=== PATIENT | female | born 1960 ===

== ENCOUNTER → 2020-09-06 | Outpatient (CLI) | payer OTHER ==
--- NOTE | 2020-09-06 09:47 | NM ---
EXAMINATION TYPE: NM hepatobiliary w EF DATE OF EXAM: 09/06/2020 COMPARISON: NONE HISTORY: Epigastric pain TECHNIQUE: After the intravenous administration of 4.3 mCi Tc 99m Mebrofenin hepatobiliary scintigrap hy is performed. Immediate images post injection. FINDINGS: There is satisfactory initial accumulation of tracer by the liver. The gallbladder is visualized wit hin 6 minutes. The small bowel activity is noted within 22 minutes. At one hour 8 ounces of oral en sure plus is given to mimic CCK and gallbladder ejection fraction is calculated at 68 %, in the emma l range. Therefore there is no scintigraphic evidence of cystic or common bile duct obstruction to s uggest acute cholecystitis or gallbladder dyskinesia. IMPRESSION: Exam is within normal limits.
== END | disposition home or self-care (01) ==
LOC: RADNMMAIN 06:45
PROVIDERS: ATTEND Internal Medicine Gastroenterology
DX: R10.13 Epigastric pain (principal)
CPT/HCPCS: 78226; A9537

== ENCOUNTER 2020-10-10 09:11 | Day surgery (SDC) | payer OTHER ==
[2020-10-05 13:46] VITALS: BMI 20.9
[~2020-10-10 09:11] MED LIST: LACTATED RINGERS 1,000 ML IV SCH; LIDOCAINE 1% (10MG/ML) FOR IV START INTRADERMA PRN
[2020-10-10 09:55] VITALS: RESP 16; TEMP 97.9
[2020-10-10] MEDS ORDERED: LIDOCAINE 1% INJ 10MG/ML (20 ML MDV) ONE (10:41)
[2020-10-10] MEDS ORDERED: PROPOFOL 10 MG/ML 20 ML VIAL IV ONE (10:41)
--- NOTE | 2020-10-10 10:53 | P.PCN ---
Date of Procedure: 10/10/20 Procedure(s) Performed: BRIEF HISTORY: Patient is a 59-year-old, pleasant, scheduled for an upper endoscopy as a part of evaluation of epigastric pain for the last 2 months duration. She tried Prilosec for 2 weeks with no help. PROCEDURE PERFORMED: Esophagogastroduodenoscopy with biopsy. PREOPERATIVE DIAGNOSIS: Chronic epigastric pain of 2 months duration. IV sedation per anesthesia. PROCEDURE: After informed consent was obtained, the patient was brought into the endoscopy unit. IV sedation was administered by Anesthesia under continuous monitoring. Initially the Olympus GIF-140 video endoscope was inserted into the mouth. Esophagus intubated without any difficulty. It was gradually advanced into the stomach and duodenum and carefully examined. The bulb and the second part of the duodenum appeared normal. Biopsies were done from the duodenum to rule out celiac disease. The scope at this time was withdrawn to the stomach, adequately insufflated with air, and upon careful examination, mucosa of the antrum, had mild gastritis and biopsies were done from this area. The body, cardia and the fundus appeared normal. The scope was then withdrawn into the esophagus. The GE junction was located at 39 cm from the incisors. There was circumferential erythema the GE junction consistent with LA grade a reflux esophagitis. The rest of the esophagus appeared normal. There were no erosions or ulcerations seen and the patient tolerated the procedure well. IMPRESSION: 1. Mild antral gastritis 2. LA grade a reflux esophagitis 3. Small gastric polyps. RECOMMENDATIONS: The findings of this examination were discussed with the patient as well as a family. She was advised to follow with the biopsy results.. The meantime she'll give and be given a prescription for Carafate 1 g 4 times daily and she'll be seen in office in 2 weeks
[2020-10-10 11:22] VITALS: BP 116/79; PULSE 69
== END 2020-10-10 11:55 | disposition home or self-care (01) ==
LOC: ORWHC2ENDO 09:11
PROVIDERS: ATTEND Internal Medicine Gastroenterology
DX: G89.29 Other chronic pain (principal); K29.50 Unspecified chronic gastritis without bleeding; K31.7 Polyp of stomach and duodenum; K21.00 Gastro-esophageal reflux disease with esophagitis, without bleeding; Z86.718 Personal history of other venous thrombosis and embolism; I73.00 Raynaud's syndrome without gangrene; R11.0 Nausea; Z97.2 Presence of dental prosthetic device (complete) (partial); Z79.899 Other long term (current) drug therapy
CPT/HCPCS: 88305; 43239; J2001; J2704

== ENCOUNTER 2021-01-06 11:55 | Emergency (ER) | payer OTHER ==
[2021-01-06 12:07] VITALS: TEMP 98.1
[2021-01-06] MEDS ORDERED: diphenhydrAMINE 50 MG/ML 1 ML VIAL IVP STA (12:21)
[2021-01-06] MEDS ORDERED: SODIUM CHLORIDE 0.9% 1,000 ML IV STA (12:21)
[2021-01-06] MEDS ORDERED: KETOROLAC 15 MG/ML 1 ML VIAL IVP STA (12:21)
[2021-01-06] MEDS ORDERED: METOCLOPRAMIDE 5 MG/ML 2 ML VIAL IVP STA (12:21)
[2021-01-06] MEDS ORDERED: FAMOTIDINE 20 MG/2 ML VIAL IV STA (12:22)
--- NOTE | 2021-01-06 12:52 | ED ---
General Adult HPI - General Chief complaint: Abdominal Pain Stated complaint: Abd pain Time Seen by Provider: 01/06/21 12:09 Source: patient, RN notes reviewed, old records reviewed Mode of arrival: ambulatory Limitations: no limitations - History of Present Illness Initial comments: Patient is a 60-year-old female with past medical history remarkable for chronic gastritis, ring on, history of blood clot in the right arm, nausea who presents emergency Department complaining of abdominal pain with nausea. She states that this is different than her prior episodes of abdominal pain and nausea. Typically, she is to have pain in the epigastric region. She currently has pain near the umbilicus with some slight radiation to the left upper abdomen. She describes it as an achy pain that comes and goes and sometimes is so severe that she bends over in pain. She does have a history of ovarian cysts. She states this pain has been ongoing for a few days to a week. Associated with this is intermittent palpitations which are chronic for her as well. She endorses nausea but denies any episodes of vomiting. Denies any change in bowel habits, stooling, and stomach and gas. Denies any blood in her stool. Denies any hematemesis. Denies any dysuria, hematuria, vaginal discharge or bleeding. She denies any abdominal surgeries except for section. States she is no longer on her menstrual cycle. She does have a history of ovarian cyst. She denies any headache, weakness, numbness. Denies any shortness of breath, no fevers, chills. She has no other acute complaint at this time. Patient has been seen previously for abdominal pain and recently received a computed tomography scan of her abdomen and pelvis 3 weeks ago for her epigastric pain which is negative. Showed no acute intra-abdominal process. Report is with the patient. - Related Data Home Medications Medication Instructions Recorded Confirmed Flecainide Acetate 50 mg PO BID 01/06/21 01/06/21 Omeprazole 40 mg PO DAILY 01/06/21 01/06/21 Previous Rx's Medication Instructions Recorded HYDROcodone/APAP 5-325MG [[place] 1 tab PO Q6HR PRN 3 Days #12 tab 01/06/21 5-325] Allergies Allergy/AdvReac Type Severity Reaction Status Date / Time No Known Allergies Allergy Verified 01/06/21 14:59 Review of Systems ROS Statement: Those systems with pertinent positive or pertinent negative responses have been documented in the HPI. Review of Systems: CONST: Denies fever EYES: Denies blurry vision ENT: Denies nasal congestion C/V: Endorses palpitations RESP: Denies shortness of breath GI: Endorses abdominal pain : Denies dysuria SKIN: Denies rash. MSK: Denies joint pain. NEURO: Denies headache ROS Other: All systems not noted in ROS Statement are negative. Past Medical History Past Medical History: GERD/Reflux Additional Past Medical History / Comment(s): Nausea, Raynaud's, hx. blood clot in R arm. History of Any Multi-Drug Resistant Organisms: None Reported Past Surgical History: Section, Tonsillectomy Additional Past Surgical History / Comment(s): Hand surgery both hands. Colonoscopy. Past Anesthesia/Blood Transfusion Reactions: No Reported Reaction Past Psychological History: No Psychological Hx Reported Smoking Status: Never smoker Past Alcohol Use History: None Reported Past Drug Use History: None Reported - Past Family History Mother Family Medical History: No Reported History General Exam - General Exam Comments Initial Comments: General: Appears in no acute distress. HEAD: Normal with no signs of head trauma. EYES: PERRLA, EOMI, conjunctiva normal, no discharge. Pupils are 3 mm bilaterally. ENT: Hearing grossly intact, normal oropharynx. RESPIRATORY: Clear breath sounds bilaterally. No wheezes, rales, or rhonchi. C/V: Regular rate and rhythm. S1 and S2 auscultated, no edema, peripheral pulses 2+ and intact throughout ABD: Abdomen is soft, nondistended. Patient has some mild tenderness to palpation just left to the umbilicus but does not seem to radiate. She is no CVA tenderness to percussion. No peritoneal signs. No rebound tenderness.. No guarding. EXT: Normal range of motion, no obvious deformity SKIN: No rashes or lesions observed on exposed skin. NEURO: Alert and oriented 4. Limitations: no limitations Course Vital Signs 01/06/21 01/06/21 01/06/21 12:03 13:43 17:09 Temperature 98.1 F Pulse Rate 77 72 Respiratory 20 18 Rate Blood Pressure 118/81 120/82 O2 Sat by Pulse 100 98 Oximetry Medical Decision Making - Medical Decision Making Based on the patient's presentation and physical exam, I would like to rule out the possibility of ovarian torsion in this patient, however there is low likelihood as she does have a history of ovarian cyst but she is slightly older. His abdominal pain is abnormal for her. Her typical gastritis, and therefore we will start with an ultrasound is we're awaiting results of laboratory studies. She is having intermittent palpitations as well as her abdominal pain nausea, also obtain a cardiac workup including EKG, troponin, chest x-ray. She'll be sent directly treated with 1 L fluid bolus, IV Benadryl, Pepcid, Toradol, Reglan. She'll be connected to continuous cardiac monitoring while she is in the department. Patient was in agreement this plan. Patient's EKG shows normal sinus rhythm without any signs of acute ischemia. Patient's lavatory studies are remarkable for a mildly elevated total bilirubin of 1.5. Patient's alk phos is low at 36. Troponin is negative. Patient's bicarb is mildly decreased at 20. Remainder of her laboratory studies are unremarkable. Patient's chest x-ray reveals no acute cardiopulmonary process. Patient's abdominal pelvic ultrasound did not show signs of ovarian torsion but did reveal a 1.6 cm lesion within the left adnexa that corresponds to a complex ovarian cyst. They recommend follow-up MRI with [facility] S[facility] TRA[facility] referral to rule out possibility of neoplasm. Due to the patient's persistent abdominal pain, we did order an abdominal CT as well, which revealed no acute intra-abdominal process. There was a hepatic cyst which is seen on prior abdominal CTs. On reevaluation, patient was still feeling somewhat nauseous with abdominal discomfort. We'll provide more analgesia as well as additional antiemetic medications. She would like to attempt by mouth challenge prior to determining if she will be discharged home or admitted. I discussed with her the need to obtain an MRI as well as [facility] AND SAFETY TRAINER follow-up, however typically this is on an outp atient basis. She exposed understanding. Following a period of observation, patient did tolerate a by mouth challenge. I do believe it is safer to be discharged, this time. I will provide her with follow-up information for [facility] S[facility]ET[facility] TRA[facility] to further workup the patient's complex ovarian cyst. She was in agreement this plan. I will provide the patient with a [place] prescription for pain, and an opiate lead start talking form was completed by myself and the patient. I will provide the patient with a prescription for [place] 5, 12 tabs. I instructed the patient to follow up with their PCP in the next 3 days. I provided contact information for follow up with Dr. Noyola of [facility]. I explai jesús that the patient should return to the emergency department if they experience any worsening symptoms. Strict return precautions were discussed with the patient. The patient expressed understanding of these instructions. I answered all questions that the patient had. The patient was discharged home in fair condition with their prescriptions and follow up information. - Lab Data Result diagrams: 01/06/21 12:39 01/06/21 13:20 Lab Results 01/06/21 01/06/21 01/06/21 Range/Units 12:39 12:39 12:47 WBC 5.5 (3.8-10.6) k/uL RBC 4.69 (3.80-5.40) m/uL Hgb 15.1 (11.4-16.0) gm/dL Hct 44.3 (34.0-46.0) % MCV 94.4 (80.0-100.0) fL MCH 32.1 (25.0-35.0) pg MCHC 34.0 (31.0-37.0) g/dL RDW 13.0 (11.5-15.5) % Plt Count 197 (150-450) k/uL MPV 9.8 Neutrophils % 62 % Lymphocytes % 30 % Monocytes % 5 % Eosinophils % 1 % Basophils % 1 % Neutrophils # 3.4 (1.3-7.7) k/uL Lymphocytes # 1.6 (1.0-4.8) k/uL Monocytes # 0.3 (0-1.0) k/uL Eosinophils # 0.1 (0-0.7) k/uL Basophils # 0.1 (0-0.2) k/uL PT (9.0-12.0) sec INR (<1.2) APTT (22.0-30.0) sec Sodium (137-145) mmol/L Potassium (3.5-5.1) mmol/L Chloride (98-107) mmol/L Carbon Dioxide (22-30) mmol/L Anion Gap mmol/L BUN (7-17) mg/dL Creatinine (0.52-1.04) mg/dL Est GFR (CKD-EPI)AfAm (>60 ml/min/1.73 sqM) Est GFR (CKD-EPI)NonAf (>60 ml/min/1.73 sqM) Glucose (74-99) mg/dL Plasma Lactic Acid Edgardo 1.1 (0.7-2.0) mmol/L Calcium (8.4-10.2) mg/dL Total Bilirubin (0.2-1.3) mg/dL AST (14-36) U/L ALT (4-34) U/L Alkaline Phosphatase (38-126) U/L Troponin I (0.000-0.034) ng/mL Total Protein (6.3-8.2) g/dL Albumin (3.5-5.0) g/dL Amylase (30-110) U/L Lipase (23-300) U/L Urine Color Colorless Urine Appearance Clear (Clear) Urine pH 7.0 (5.0-8.0) Ur Specific [place] 1.004 (1.001-1.035) Urine Protein Negative (Negative) Urine Glucose (UA) Negative (Negative) Urine Ketones Negative (Negative) Urine Blood Negative (Negative) Urine Nitrite Negative (Negative) Urine Bilirubin Negative (Negative) Urine Urobilinogen <2.0 (<2.0) mg/dL Ur Leukocyte Esterase Negative (Negative) 01/06/21 01/06/21 01/06/21 Range/Units 13:20 13:20 15:18 WBC (3.8-10.6) k/uL RBC (3.80-5.40) m/uL Hgb (11.4-16.0) gm/dL Hct (34.0-46.0) % MCV (80.0-100.0) fL MCH (25.0-35.0) pg MCHC (31.0-37.0) g/dL RDW (11.5-15.5) % Plt Count (150-450) k/uL MPV Neutrophils % % Lymphocytes % % Monocytes % % Eosinophils % % Basophils % % Neutrophils # (1.3-7.7) k/uL Lymphocytes # (1.0-4.8) k/uL Monocytes # (0-1.0) k/uL Eosinophils # (0-0.7) k/uL Basophils # (0-0.2) k/uL PT 11.4 (9.0-12.0) sec INR 1.1 (<1.2) APTT 23.8 (22.0-30.0) sec Sodium 140 (137-145) mmol/L Potassium 4.2 (3.5-5.1) mmol/L Chloride 108 H (98-107) mmol/L Carbon Dioxide 20 L (22-30) mmol/L Anion Gap 12 mmol/L BUN 5 L (7-17) mg/dL Creatinine 0.50 L (0.52-1.04) mg/dL Est GFR (CKD-EPI)AfAm >90 (>60 ml/min/1.73 sqM) Est GFR (CKD-EPI)NonAf >90 (>60 ml/min/1.73 sqM) Glucose 86 (74-99) mg/dL Plasma Lactic Acid Edgardo (0.7-2.0) mmol/L Calcium 8.6 (8.4-10.2) mg/dL Total Bilirubin 1.5 H (0.2-1.3) mg/dL AST 28 (14-36) U/L ALT 16 (4-34) U/L Alkaline Phosphatase 36 L (38-126) U/L Troponin I <0.012 (0.000-0.034) ng/mL Total Protein 6.8 (6.3-8.2) g/dL Albumin 4.1 (3.5-5.0) g/dL Amylase 82 (30-110) U/L Lipase 118 (23-300) U/L Urine Color Urine Appearance (Clear) Urine pH (5.0-8.0) Ur Specific [place] (1.001-1.035) Urine Protein (Negative) Urine Glucose (UA) (Negative) Urine Ketones (Negative) Urine Blood (Negative) Urine Nitrite (Negative) Urine Bilirubin (Negative) Urine Urobilinogen (<2.0) mg/dL Ur Leukocyte Esterase (Negative) - EKG Data -: EKG Interpreted by Me EKG Comments: 12-lead Electrocardiogram Interpretation Note EKG was reviewed and interpreted by myself. 12-lead ECG performed at 1247 is interpreted by me as revealing normal sinus rhythm at a rate of 69 beats per minute. Left axis deviation. ND interval is 120 ms, QRS duration is 80 ms, QTc is 385 ms.. There were no ST or T wave abnormalities to suggest myocardial ischemia or injury. R wave progression across the precordium was satisfactory. By my interpretation this EKG is non-diagnostic for acute ischemia. Disposition Clinical Impression: Pain in the abdomen, Nausea, Ovarian cyst, complex, Hepatic cyst Disposition: HOME SELF-CARE Condition: Fair Instructions (If sedation given, give patient instructions): Ovarian Cyst (ED), Abdominal Pain (ED) Prescriptions: HYDROcodone/APAP 5-325MG [[place] 5-325] 1 tab PO Q6HR PRN 3 Days #12 tab PRN Reason: Pain Is patient prescribed a controlled substance at d/c from ED?: Yes If prescribed controlled substance>3 days was MAPS reviewed?: Prescribed <3 Days Referrals: Priscila Willingham DO [Primary Care Provider] - 1-2 days Rachel Noyola DO [Doctor of Osteopathic Medicine] - 1-2 days
[2021-01-06 13:01] LABS: Basophils # (A) 0.1 k/uL (0-0.2); Basophils % (A) 1 %; Eosinophils # (A) 0.1 k/uL (0-0.7); Eosinophils % (A) 1 %; HCT 44.3 % (34.0-46.0); HGB 15.1 gm/dL (11.4-16.0); Lymphocytes # (A) 1.6 k/uL (1.0-4.8); Lymphocytes % (A) 30 %; MCH 32.1 pg (25.0-35.0); MCV 94.4 fL (80.0-100.0); Mean Platelet Volume 9.8; Monocytes # (A) 0.3 k/uL (0-1.0); Monocytes % (A) 5 %; Neutrophils # (A) 3.4 k/uL (1.3-7.7); Neutrophils % (A) 62 %; Platelet Count 197 k/uL (150-450); RBC 4.69 m/uL (3.80-5.40); WBC 5.5 k/uL (3.8-10.6)
[2021-01-06 13:37] LABS: Appearance,Urine Clear (Clear); Bilirubin,Urine Negative (Negative); Blood,Urine Negative (Negative); Color,Urine Colorless; Glucose,Urine (UA) Negative (Negative); Ketones,Urine Negative (Negative); Leukocyte Esterase,Urine Negative (Negative); Nitrite,Urine Negative (Negative); Protein,Urine Negative (Negative); Specific Gravity,Urine 1.004 (1.001-1.035); Urobilinogen,Urine <2.0 mg/dL (<2.0)
--- NOTE | 2021-01-06 13:47 | US ---
EXAMINATION TYPE: US pelvis limited transvag DATE OF EXAM: 01/06/2021 COMPARISON: NONE CLINICAL HISTORY: 60-year-old female evaluate for torsion. Umbilical pain with nausea today, h/o ovar imelda cyst once, prior . TECHNIQUE: TA/TV. Limited Transabdominal images. Transvaginal sonographic images were medically nec essary to better assess the following anatomy: ovaries Date of LMP: 9yrs ago FINDINGS: EXAM MEASUREMENTS: Uterus: 7.2 x 4.2 x 2.8 cm Endometrial Stripe: 0.3 cm Right Ovary: not seen cm Left Ovary: 1.9 x 2.1 x 1.9 cm 1. Uterus: Anteverted and otherwise wnl. scar noted. 2. Endometrium: Trace 1 mm fluid within the fundal uterine cavity. 3. Right Ovary: not seen due to bowel gas and atrophy 4. Left Ovary: Heterogeneous cystic appearing structure measuring 1.6 x 1.6 x 1.3cm. No internal vas cularity seen. There is satisfactory peripheral arterial and venous flow. 5. Bilateral Adnexa: wnl 6. Posterior cul-de-sac: wnl [employer] Integration Specialist notes:suspected left ovary sits so close to uterus that it mimics a pedunculated uterin e fibroid, peripheral arterial and venous flow was detected but there was no internal flow noted, pos sibly due to complex cyst, took transabdominal images to further assess but unable to benefit due to surrounding bowl gas. IMPRESSION: 1. A 1.6 cm lesion within the left adnexa likely corresponds to a complex ovarian cyst. No internal v ascularity. There is satisfactory arterial and venous flow within the peripheral ovarian parenchyma a rguing against ovarian torsion. This lesion is abnormal in a postmenopausal female. Recommend further evaluation with pelvic MRI without and with contrast and ARCHITECTURAL SUPERINTENDENT referral. A cystic epithelial ovaria n neoplasm is not excluded at this time. 2. Right ovary could not be visualized probably due to combination of postmenopausal atrophy and pushpa l gas. 3. Endometrial stripe measures 3 mm.
[2021-01-06 14:04] LABS: ALT 16 U/L (4-34); African American GFR (CKD) >90 (>60 ml/min/1.73 sqM); Albumin 4.1 g/dL (3.5-5.0); Amylase 82 U/L (30-110); Anion Gap 12 mmol/L; Blood Urea Nitrogen 5 mg/dL (7-17); Calcium 8.6 mg/dL (8.4-10.2); Carbon Dioxide 20 mmol/L (22-30); Chloride 108 mmol/L (98-107); Glucose 86 mg/dL (74-99); Lipase 118 U/L (23-300); Non-African American GFR(CKD) >90 (>60 ml/min/1.73 sqM); Sodium 140 mmol/L (137-145); Total Bilirubin 1.5 mg/dL (0.2-1.3); Total Protein 6.8 g/dL (6.3-8.2)
[2021-01-06 14:09] LABS: AST 28 U/L (14-36); Alkaline Phosphatase 36 U/L (38-126); Potassium 4.2 mmol/L (3.5-5.1)
--- NOTE | 2021-01-06 14:17 | CT ---
EXAMINATION TYPE: CT abdomen pelvis w con DATE OF EXAM: 01/06/2021 COMPARISON: None HISTORY: umbilical pain CT DLP: 460.7 mGycm Automated exposure control for dose reduction was used. CONTRAST: Performed with IV Contrast, patient injected with 100 mL of Isovue 300. There is some subsegmental atelectasis right lung base. Heart size is normal. There is no pericardial effusion. There is 2.5 cm cyst in the superior right lobe of the liver. Bile ducts are not dilated. Gallbladder is intact. Spleen stomach pancreas appear intact. There is no adrenal mass. Kidneys show satisfactory contrast opacification. There is no hydronephrosi s. Ureters are not dilated. There is normal renal excretion on the delayed images. Bladder distends s moothly. Uterus is anteverted. There is no inguinal hernia. There is no free fluid in the pelvis. There is no mesenteric edema. There is no ascites or free air. There is no bowel obstruction. There i s distended gas-filled appendix. Lumbar vertebra have fairly normal alignment. There is a minimal L4-5 subluxation. There is no eviden ce of spinal stenosis. There is no compression fracture. Bony pelvis is intact. The hip joints are in tact. IMPRESSION: Negative CT scan abdomen and pelvis. Hepatic cyst noted.
--- NOTE | 2021-01-06 14:18 | XR ---
EXAMINATION TYPE: XR chest 2V DATE OF EXAM: 01/06/2021 COMPARISON: NONE HISTORY: Abdominal pain TECHNIQUE: 2 views FINDINGS: Heart and mediastinum are normal. Lungs are clear. Diaphragm is normal. Bony thorax is inta ct. IMPRESSION: Normal chest.
[2021-01-06] MEDS ORDERED: MORPHINE SULFATE 4 MG/ML SYRINGE IVP STA (15:32)
[2021-01-06] MEDS ORDERED: ONDANSETRON 4 MG/2 ML VIAL IVP STA (15:32)
[2021-01-06 15:42] LABS: INR 1.1 (<1.2); Partial Thromboplastin Time 23.8 sec (22.0-30.0); Prothrombin Time 11.4 sec (9.0-12.0)
[2021-01-06 17:10] VITALS: BP 120/82; PULSE 72; RESP 18
== END 2021-01-06 17:14 | disposition home or self-care (01) ==
LOC: EC 11:55
DX: N83.202 Unspecified ovarian cyst, left side (principal); R11.0 Nausea; K76.89 Other specified diseases of liver; K21.9 Gastro-esophageal reflux disease without esophagitis; I73.00 Raynaud's syndrome without gangrene; Z90.89 Acquired absence of other organs; Z87.19 Personal history of other diseases of the digestive system
CPT/HCPCS: 99285; 96374; 96375 ×5; 96361; 36415; 93005; 80053; 82150; 83605; 83690; 84484; 85025; 85610; 85730; 81003; 71046; 76856; 76830; 74177; J2270; J1200; J2765; J2405; J1885; Q9967; 76857; 93976; 99284

== ENCOUNTER → 2023-08-20 | Outpatient (CLI) | payer OTHER ==
--- NOTE | 2023-08-20 15:25 | MR ---
EXAMINATION TYPE: MR hip RT wo con DATE OF EXAM: 08/20/2023 COMPARISON: Outside pelvic and bilateral hip x-rays August 18, 2023 HISTORY: Right hip pain, clicking, locking, and limited movement for 6 months, some relief with acupu ncture Standard multiplanar, multisequence MRI departmental protocol Multiplanar, multisequence images of the pelvis focusing on right hip were acquired without contrast. FINDINGS: Uiby-[id number]-[id number] axial joint space loss in both hips is seen. No significant spurring or ramos bchondral cystic change. Symmetric small joint effusions are presumed physiologic. No significant spu rring. Femoral head shapes are maintained bilaterally. No suspicious increased T2 signal to suggest a bnormal osseous edema. No suspicious serpiginous diminished T1 signal to suggest avascular necrosis. No significant coronary hernia or adenopathy is seen. Muscle bulk is symmetric and maintained bilater ally. Mild edema level of the greater trochanters bilaterally. Urinary bladder appears within normal limits. Visualized uterus shows 2.3 cm posterior subserosal fib roid axial image 30. No suspicious bowel dilatation. No free fluid in the pelvis. IMPRESSION: Efaz-sa-ebkprjrx degenerative changes in both hips as detailed above
== END | disposition home or self-care (01) ==
LOC: RADMRIMAIN 09:17
PROVIDERS: ATTEND Orthopaedic Surgery
DX: M16.0 Bilateral primary osteoarthritis of hip (principal)

== ENCOUNTER → 2024-01-13 | Outpatient (CLI) | payer OTHER ==
[2024-01-14 02:14] LABS: Basophils # (A) 0.05 X 10*3/uL (0.00-0.10); Basophils % (A) 0.7 %; Eosinophils # (A) 0.06 X 10*3/uL (0.04-0.35); Eosinophils % (A) 0.9 %; HCT 37.2 % (37.2-46.3); HGB 12.2 g/dL (12.0-15.0); Lymphocytes # (A) 2.45 X 10*3/uL (0.90-5.00); MCH 32.4 pg (27.0-32.0); MCHC 32.8 g/dL (32.0-37.0); MCV 98.7 FL (80.0-97.0); Mean Platelet Volume 11.2 FL (9.5-12.2); Monocytes # (A) 0.43 X 10*3/uL (0.20-1.00); Monocytes % (A) 6.3 %; NRBC Per 100 WBC 0 X 10*3/uL (0.00-0.01); Neutrophils % (A) 55.8 %; Platelet Count 197 X 10*3/uL (140-440); RBC 3.77 X 10*6/uL (4.10-5.20); RDW 12.4 % (11.5-14.5); WBC 6.81 X 10*3/uL (4.50-10.00)
[2024-01-14 03:04] LABS: Anion Gap 13.4 mmol/L (4.00-12.00); Carbon Dioxide 23.6 mmol/L (21.6-31.8); Potassium 4.2 mmol/L (3.5-5.5)
== END | disposition home or self-care (01) ==
LOC: LABPAT 13:56
PROVIDERS: ATTEND Orthopaedic Surgery
DX: Z01.818 Encounter for other preprocedural examination
CPT/HCPCS: 36415; 80051; 85025; 93005

== ENCOUNTER 2024-01-18 09:29 | Day surgery (SDC) | payer OTHER ==
[2024-01-14 08:56] VITALS: BMI 22.1
--- NOTE | 2024-01-17 12:14 | HP ---
HISTORY AND PHYSICAL DATE OF SURGERY: 01/18/2024. HISTORY OF PRESENT ILLNESS: Marilynn Bello is a 63-year-old patient, seen with a left ankle displaced bimalleolar fracture. I recommended open reduction and internal fixation. I reviewed the procedure, risks, complications, benefits, recovery, she was agreeable. Consents obtained. PAST MEDICAL HISTORY: Noncontributory. PAST SURGICAL HISTORY: section. DAILY MEDICATIONS: Vitamins. ALLERGIES: None. SOCIAL HISTORY: She denies tobacco use. PHYSICAL EVALUATION OF LEFT ANKLE: She is tender along the medial and lateral malleoli. There is some swelling and mild ecchymosis. She is able to move her toes without pain. She has a good pedal pulse. Good perfusion sensation distally. IMAGING STUDIES: Radiographs of the left ankle revealed a displaced bimalleolar fracture. IMPRESSION: Left ankle displaced bimalleolar fracture. PLAN: Open reduction and internal fixation of left ankle bimalleolar fracture. MMODL / IJN: [id number] /
[2024-01-18] MEDS ORDERED: LIDOCAINE 1% (10MG/ML) FOR IV START INTRADERMA PRN (09:41)
[2024-01-18] MEDS ORDERED: HYDROmorphone 0.5 MG/0.5 ML SYRINGE IVP PRN ×4 (09:41→12:18)
[2024-01-18] MEDS ORDERED: droPERidol 5 MG/2 ML VIAL IVP PRN (09:41)
[2024-01-18] MEDS: IV FLUID CONTINUATION 1,000 ML IV ONE (10:05)
[2024-01-18] MEDS: LACTATED RINGERS 1,000 ML IV SCH ×2 (10:06→16:32)
[2024-01-18] MEDS: MIDAZOLAM 2 MG/2 ML VIAL IV STA (10:11)
[2024-01-18] MEDS: fentaNYL (PF) 50 MCG/ML 2 ML AMP IVP STA (10:11)
[2024-01-18] MEDS: DEXAMETHASONE SOD PHOSPHATE 4 MG/ML 1 ML VIAL IV ONE (10:23)
[2024-01-18] MEDS: ONDANSETRON 4 MG/2 ML VIAL IVP ONE (10:23)
[2024-01-18] MEDS ORDERED: SODIUM CHLORIDE 0.9% (PF) 10 ML VIAL ONE (10:43)
[2024-01-18] MEDS ORDERED: LIDOCAINE 1% INJ 10MG/ML (20 ML MDV) ONE (10:43)
[2024-01-18] MEDS ORDERED: PROPOFOL 10 MG/ML 20 ML VIAL IV ONE (10:43)
[2024-01-18] MEDS ORDERED: MIDAZOLAM 2 MG/2 ML VIAL ONE (10:43)
[2024-01-18] MEDS ORDERED: ePHEDrine 50 MG/ML 1 ML VIAL ONE (10:43)
[2024-01-18] MEDS ORDERED: fentaNYL (PF) 50 MCG/ML 2 ML AMP ONE (10:43)
[2024-01-18] MEDS ORDERED: PHENYLEPHRINE-0.9% NACL SYG 1,000 MCG/10 ML SYRINGE ONE (10:43)
[2024-01-18] MEDS ORDERED: ROPIVACAINE 5 MG/ML 30 ML VIAL ONE (10:43)
[2024-01-18] MEDS: LACTATED RINGERS 1,000 ML IV ONE (11:25)
[2024-01-18] MEDS: ceFAZolin 1,000 MG in SODIUM CHLORIDE 0.9% 1,000 ML IRRIGATION ONE (11:35)
--- NOTE | 2024-01-18 12:18 | P.OP ---
Date of Procedure: 01/18/24 Preoperative Diagnosis: Displaced left ankle bimalleolar fracture Postoperative Diagnosis: Displaced left ankle bimalleolar fracture Procedure(s) Performed: Open reduction and internal fixation left ankle bimalleolar fracture Implants: Synthes 6 hole plate with appropriate 3.5 screws as well as 2-40 mm 4.0 partially-threaded screws Anesthesia: ERNIE Surgeon: Roger Craig Director Loss Prevention #1: Edin Carver Estimated Blood Loss (ml): 10 Pathology: none sent Condition: stable Disposition: PACU Indications for Procedure: 63-year-old patient seen with a displaced left ankle bimalleolar fracture. I recommended open reduction internal fixation. Patient was agreeable. Consent was obtained. Operative Findings: See description of procedure Description of Procedure: Patient was taken to the operative suite. She received preoperative IV antibiotics. She underwent a general anesthetic by the prime anesthesia. Well- padded tourniquet placed proximal left thigh. Left lower extremity was prepped and draped in the normal sterile orthopedic fashion. We elevated the extremity insufflated the tourniquet to 250. I made an incision laterally overlying the lateral malleolus sharply through skin. I dissected down to periosteum. I identified the displaced fracture. Periosteal elevator was utilized to better define the fracture. With the assistance of SETH Mcdonald I reduced the fracture and held in position with a jsefq-zx-[id number] clamp. I chose an appropriate 6-hole plate and contoured appropriately. I held that against lateral malleolus and then began drilling holes. I now introduced to cancellous screws distally and 3 cortical screws proximally as the last screw hole was overlying the fracture site. The [id number] clamp was removed. We had good fixation and good stability. C-arm was brought in confirming adequate alignment and positioning of the plate and screws. We now turned our attention to the medial malleolus. I made an incision over the medial knee sharply through skin. I dissected down to the fracture. Periosteal elevation was barely utilized to find the fracture. The fracture was reduced. I made 2 drill holes introduced to40 mm 4.0 partially-threaded screws with good purchase noted. The reduction clamp was removed. We brought the C arm in the operative field and evaluated the ankle under AP, lateral and oblique imaging noting good positioning of the hardware and adequate reduction of the fracture with scientology of the mortise. Spot films were obtained to document this. The wound was irrigated. The subcutaneous soft tissues were repaired with 2-0 Vicryl. Skin was approximate with skin shana. Sterile dressings were applied. Tourniquet released and immediate capillary refill of the entire extremity and toes noted. The ankle was placed into a modified bulky Montesinos splint with the ankle in neutral position. The patient was awakened, transferred to recovery in stable condition. SETH Mcdonald assisted in all aspects of the surgery.
--- NOTE | 2024-01-18 17:01 | P.ANPRN ---
Procedure Note - Anesthesia - Nerve Block Performed Left Adductor Canal Single Time Out Performed: Yes (1011) Date of Procedure: 01/18/24 Procedure Start Time: 10:17 Procedure Stop Time: 10:19 Location of Patient: PreOp Indication: Acute Post-Operative Pain, Requested by Surgeon Specifically requested for management of pain by DrJoshua: Roger Craig Sedation Type: Sedate with meaningful contact maintained Preparation: Sterile Prep Position: Supine Catheter: None Needle Types: Pajunk Needle Gauge: 21 Ultrasound used to visualize needle placement: Yes Ultrasound used to observe medication spread: Yes Injectate: 0.5% Ropivacaine (see comment for volume) (15cc +10cc nacl pf) Blood Aspirated: No Pain Paresthesia on Injection Noted: No Resistance on Injection: Normal Image Stored and Saved: Yes Events: Uneventful and Well Tolerated
--- NOTE | 2024-01-18 17:01 | P.ANPRN ---
Procedure Note - Anesthesia - Nerve Block Performed Left Popliteal Single Time Out Performed: Yes (1011) Date of Procedure: 01/18/24 Procedure Start Time: 10:12 Procedure Stop Time: 10:16 Location of Patient: PreOp Indication: Acute Post-Operative Pain, Requested by Surgeon Specifically requested for management of pain by DrJoshua: Roger Craig Sedation Type: Sedate with meaningful contact maintained Preparation: Sterile Prep Position: Right Lateral Catheter: None Needle Types: Pajunk Needle Gauge: 21 Ultrasound used to visualize needle placement: Yes Ultrasound used to observe medication spread: Yes Injectate: 0.5% Ropivacaine (see comment for volume) (15cc +10cc nacl pf) Blood Aspirated: No Pain Paresthesia on Injection Noted: No Resistance on Injection: Normal Image Stored and Saved: Yes Events: Uneventful and Well Tolerated
[2024-01-19] MEDS: HYDROcodone/APAP 5-325MG 1 EACH TAB PO PRN ×2 (01:37→08:28)
[2024-01-19 02:40] VITALS: PULSE 77
--- NOTE | 2024-01-19 12:56 | P.PN ---
Subjective Progress Note Date: 01/19/24 Principal diagnosis: Status post ORIF left bimalleolar ankle fracture patient was evaluated at bedside, her is present. She is doing rather well today. She does note some occasional discomfort in the ankle. She has been urinating with no issues. She has no headaches, lightheadedness, chest pain or shortness of breath. Objective - Vital Signs Vital signs: Vital Signs Temp 98.1 F 01/19/24 07:00 Pulse 77 01/19/24 07:00 Resp 16 01/19/24 07:00 BP 103/66 01/19/24 07:00 Pulse Ox 99 01/19/24 07:00 FiO2 Intake & Output 01/18/24 01/19/24 01/19/24 18:59 06:59 18:59 Intake Total 1251 Output Total 310 Balance 941 Weight 55.2 kg Intake: IV 1251 Output: Urine 300 Estimated Blood Loss 10 Other: Voiding Method Toilet # Voids 2 - Exam Left lower extremity: Postop splint is in good position and condition. Sensory exam to light touch both proximal and distal to the splint are intact. She is able to wiggle the toes with no difficulty. Skin is warm to touch. Assessment and Plan Assessment: postoperative day #1 status post ORIF left bimalleolar ankle fracture Plan: pain control, plan for discharge home on [place] and Zofran DVT prophylaxis, aspirin 81 mg twice a day nonweightbearing left lower extremity. Wound care instructions were discussed, this to include showering instructions icing and elevating techniques discussed discharge planning: Stable for discharge home today Time with Patient: Less than 30
--- NOTE | 2024-01-19 13:02 | P.DS ---
Providers Date of admission: 01/18/2024 Expected date of discharge: 01/19/24 Attending physician: Roger Craig Primary care physician: Priscila Willingham Hospital Course: date of admission: 01/18/2024 Date of discharge: 01/19/2024 Admission diagnosis: status post ORIF left bimalleolar ankle fracture Discharge diagnosis: same Attending physician: Dr. Craig Surgical procedures: ORIF left bimalleolar ankle fracture Brief history: Patient is a 63-year-old female who had been evaluated in the outpatient setting for an injury that resulted in a left bimalleolar ankle fracture. Options of treatment were discussed, patient proceeded with a elective ORIF left bimalleolar ankle fracture with Dr. Craig on 01/19/2024. Hospital course: Details of patient's surgery can be found in operative report. Patient tolerated the procedure well and was subsequently transported to orthopedic floor. Patient's orthopeidc and medical care was provided daily. Patient had daily laboratory tests performed for evaluation of overall blood counts. Patient had daily physical therapy to include strengthening range of motion as well as education with walker ambulation. Patient was treated with Aspirin for their postoperative DVT prophylaxis during their inpatient stay. Patient was noted to have a relatively uneventful postoperative course. Patient reported satisfactory pain control with oral pain medications by postoperative d ay 0. Patient showed satisfactory progress with physical therapy. Patient moved steadily through the program and had no difficulty meeting the goals by postoperative day 1. Given patient's otherwise satisfactory course and having met physical therapy goals, plan is to discharge patient home on postoperative day 1. Discharge condition/disposition: Patient will be discharged home in stable condi tion. Discharge medications: Instructions are given on resumption of patient's normal daily medications per primary care recommendation, in addition patient will be prescribed Hitchcock 7.5 mg / 325 mg, Zofran 8 mg, senna S, aspirin 81 mg, Keflex 500 mg. Discharge instructions: 1. nonweightbearing left lower extremity 2. Do not remove splint, keep covered while showering 3. Ice and elevate often 4. Pain medication as needed 5. Aspirin 81 mg twice a day for DVT prophylaxis 6. Plan [facility] 2 weeks for recheck Procedures: open reduction internal fixation left bimalleolar ankle fracture Patient Condition at Discharge: Good Plan - Discharge Summary Discharge Rx Participant: No New Discharge Prescriptions: New Aspirin [Adult Low Dose Aspirin EC] 81 mg PO BID #30 tab HYDROcodone/APAP 7.5-325MG [Hitchcock 7.5] 1 each PO Q6HR PRN #28 tab PRN Reason: Pain Cephalexin [Keflex] 500 mg PO Q6HR 3 Days #12 cap Sennosides/Docusate Sodium [Senna-S 8.6-50 mg Tablet] 2 each PO DAILY PRN #14 tablet PRN Reason: Constipation ondansetron HCL [Zofran] 8 mg PO Q12HR PRN #14 tab PRN Reason: Nausea No Action ALPRAZolam [Xanax] 0.25 mg PO DAILY PRN PRN Reason: znxiety Arnicare Arthritis Cream 1 dose TOPICAL DAILY PRN PRN Reason: Pain Vitamin D3/Vitamin K2 (Mk4) [Vitamin K2 Plus D3 Tablet] 1 each PO DAILY Magnesium 120 mg PO BID Ibuprofen [Motrin] 200 mg PO Q6HR PRN PRN Reason: Pain Multivitamins, Thera [Multivitamin (formulary)] 1 tab PO DAILY Acetaminophen [Tylenol Extra Strength] 1,000 mg PO Q8H PRN PRN Reason: Pain Curtiss-3/Dha/Epa/Fish Oil [Fish Oil 500 mg Softgel] 1 each PO DAILY Vitamin B Complex 1 each PO DAILY Discharge Medication List ALPRAZolam [Xanax] 0.25 mg PO DAILY PRN 01/14/24 [History] Acetaminophen [Tylenol Extra Strength] 1,000 mg PO Q8H PRN 01/14/24 [History] Arnicare Arthritis Cream 1 dose TOPICAL DAILY PRN 01/14/24 [History] Ibuprofen [Motrin] 200 mg PO Q6HR PRN 01/14/24 [History] Magnesium 120 mg PO BID 01/14/24 [History] Multivitamins, Thera [Multivitamin (formulary)] 1 tab PO DAILY 01/14/24 [History] Curtiss-3/Dha/Epa/Fish Oil [Fish Oil 500 mg Softgel] 1 each PO DAILY 01/14/24 [History] Vitamin B Complex 1 each PO DAILY 01/14/24 [History] Vitamin D3/Vitamin K2 (Mk4) [Vitamin K2 Plus D3 Tablet] 1 each PO DAILY 01/14/24 [History] Aspirin [Adult Low Dose Aspirin EC] 81 mg PO BID #30 tab 01/19/24 [Rx] Cephalexin [Keflex] 500 mg PO Q6HR 3 Days #12 cap 01/19/24 [Rx] HYDROcodone/APAP 7.5-325MG [Hitchcock 7.5] 1 each PO Q6HR PRN #28 tab 01/19/24 [Rx] Sennosides/Docusate Sodium [Senna-S 8.6-50 mg Tablet] 2 each PO DAILY PRN #14 tablet 01/19/24 [Rx] ondansetron HCL [Zofran] 8 mg PO Q12HR PRN #14 tab 01/19/24 [Rx] Follow up Appointment(s)/Referral(s): Ernie Cortez, PAC [[facility]] - 2 Weeks Activity/Diet/Wound Care/Special Instructions: orthopedic discharge instructions: 1. Nonweightbearing left lower extremity 2. Do not remove splint, keep covered and dry while showering 3. Ice and elevate often 4. Aspirin twice a day for DVT prophylaxis 5. Pain medication as needed 6. Follow-up with [facility] in 2 weeks for recheck, contact office with any acute issues or questions Discharge Disposition: HOME WITH HOME HEALTH SERVICES
[2024-01-19 13:23] VITALS: BP 106/65; RESP 17; TEMP 98.4
[2024-01-19] MEDS: ONDANSETRON 4 MG/2 ML VIAL IVP PRN (13:26)
--- NOTE | 2024-01-19 18:14 | FL ---
EXAMINATION TYPE: FL guidance operating room, XR ankle limited LT DATE OF EXAM: 01/18/2024 12:00 PM COMPARISON: Pre Operative Images if available both CT/MRI or plain film CLINICAL INDICATION: Female, 63 years old with history of S82.842; TECHNIQUE: FL guidance operating room, XR ankle limited LT, multiple fluoroscopic images provided for procedure. Total fluoroscopy time: 13 seconds Total submitted images to PACS: 4 DAP: 0.0873 mGym2 Gycm2 uGym2 cGycm2 or equivalent. FINDINGS: Fluoroscopic images during internal fixation/arthroplasty demonstrate fixation hardware in appropriat e position. Hardware appears intact. No immediate complication identified. IMPRESSION: 1. No evidence for intraoperative complication. 2. Please see the operative/procedural note for further details. [facility], , 01/19/2024 6:11 PM
== END 2024-01-19 14:10 | disposition home health service (06) ==
LOC: OR 09:29 → 1SOBS 11:58 → OR 01-19 14:10
PROVIDERS: ATTEND Orthopaedic Surgery
CPT/HCPCS: 64445; 64447